=== PATIENT | male | born 2005 | race African-American/Black ===

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

== ENCOUNTER 2024-08-21 19:25 | Emergency (ER) | payer OTHER ==
[2024-08-21 19:33] VITALS: BP 140/59; PULSE 59; RESP 18; TEMP 98.4; BMI 29.9
[2024-08-21] MEDS ORDERED: IBUPROFEN 600 MG TABLET (FP) PO ONE (20:18)
[2024-08-21] MEDS: KETOROLAC TROMETHAMINE 30 MG/1 ML VIAL IM ONE (20:59)
[2024-08-21] MEDS: IBUPROFEN 600 MG TABLET (FP) PO ONE (21:15)
== END 2024-08-21 21:18 | disposition home or self-care (01) ==
LOC: FER 19:25
DX: S90.931A Unspecified superficial injury of right great toe, initial encounter (principal); W20.8XXA Other cause of strike by thrown, projected or falling object, initial encounter
CPT/HCPCS: 73630-TC-RT-FY; 99283-25